=== PATIENT | female | born 1980 | race Caucasian/White ===

== ENCOUNTER 2021-11-17 22:19 | Emergency (ER) | payer SELFPAY ==
[~2021-11-17] VITALS: Ht 167.6 cm; Wt 68.0 kg
[2021-11-18] MEDS ORDERED: LORAZEPAM 2MG/ML CPJ IM ONE (01:30)
[2021-11-18] MEDS ORDERED: MECLIZINE 25MG TABLET PO ONE (01:30)
[2021-11-18 03:41] LABS: BASOPHILS % 0.3 % (0.0-2.0); EOSINOPHILS % 0.5 % (0.0-5.0); HEMATOCRIT. 39.3 % (36.0-48.0); HEMOGLOBIN. 13.6 g/dL (12.0-16.0); LYMPHOCYTES % 21.3 % (20.0-50.0); MEAN CORPUSCULAR HEMOGLOBIN 29.9 pg (28.0-32.0); MEAN CORPUSCULAR VOLUME 86.6 fL (81.0-99.0); MEAN PLATELET VOLUME 10.7 fl (7.4-10.4); MONOCYTES % 5.7 % (2.0-8.0); NEUTROPHILS % 72.2 % (40.0-76.0); PLATELET 198 x1000/uL (130-400); RED BLOOD CELL COUNT 4.55 mill/uL (4.2-5.4); RED CELL DISTRIBUTION WIDTH 13.1 % (11.6-14.6)
[2021-11-18 03:48] LABS: CHLORIDE 102 mEq/L (98-107)
[2021-11-18] MEDS ORDERED: MECL-159 MT (04:14)
[2021-11-18 05:45] VITALS: BP 132/85
== END 2021-11-18 06:00 | disposition home or self-care (01) ==
LOC: ER 22:19
DX: R42 Dizziness and giddiness (principal)
CPT/HCPCS: 36415; 80053; 82962; 85025; 96372; 99283; J2060; J8597